=== PATIENT | male | born 1955 | race Hispanic/Latino ===

== ENCOUNTER 2018-06-15 11:42 | Emergency (ER) | payer OTHER ==
[2018-06-15] MEDS ORDERED: ASPIRIN PO ONE (11:58)
[2018-06-15 13:10] LABS: Basophils % (Auto) 0.4 % (0.0-1.8); Eosinophils # (Auto) 0.2 K/mm3 (0.0-0.4); Eosinophils % (Auto) 3.1 % (0.0-4.3); Hematocrit 49.2 % (35.5-45.6); Hemoglobin 16.5 gm/dl (11.8-15.2); Lymphocytes # (Auto) 1.9 K/mm3 (1.2-5.4); Lymphocytes % (Auto) 25.4 % (13.4-35.0); Mean Corpuscular HGB Conc 34 % (32-34); Mean Corpuscular Hemoglobin 31 pg (28-32); Mean Corpuscular Volume 93 fl (84-94); Monocytes # (Auto) 0.5 K/mm3 (0.0-0.8); Monocytes % (Auto) 6.6 % (0.0-7.3); Platelet Count 280 K/mm3 (140-440); Red Blood Count 5.28 M/mm3 (3.65-5.03); Red Cell Distribution Width 13.7 % (13.2-15.2)
[2018-06-15 13:45] LABS: BUN/Creatinine Ratio 20; Blood Urea Nitrogen 14 mg/dL (9-20); Calcium 9.6 mg/dL (8.4-10.2); Hemolysis Index 21
[2018-06-15 15:34] VITALS: BP 128/73
--- NOTE | 2018-06-15 15:39 | Emergency Department Report ---
ED Chest Pain HPI - General Chief Complaint: Chest Pain Stated Complaint: CHEST PAIN Time Seen by Provider: 06/15/18 14:51 Source: patient Mode of arrival: Ambulatory Limitations: No Limitations - History of Present Illness Initial Comments: 62-year-old male with past medical history of untreated hypertension and daily alcohol use presents to the hospital with complaints of chest pain and elevated blood pressure. While at rest and after eating breakfast patient began to have this chest tightness, diaphoresis, and shortness of breath. Patient also had pain in his left shoulder blade. He has residual aching pain and states that pain increases with deep inspiration. He denies nausea or vomiting. 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 He declined transport to the hospital but drove himself. Patient drinks alcohol daily but denies history of alcohol withdrawal tremors or seizures. Last drink was last p.m. He does not smoke cigarettes. His father had history of CAD. He reports he had an unremarkable stress test about 1 year ago as an outpatient and has never been cathed.Dad about 2 months ago he was told his blood pressure was high and suspects this been high longer than that but he has never been treated with blood pressure medication. Patient denies recent travel, calf tenderness, or history of PE/DVT. He has a secondary complaint of progressively worsening right inguinal swelling. This improves and disappears when lying supine and increases while standing. Severity scale (0 -10): 6 - Related Data Previous Rx's Medication Instructions Recorded Last Taken Type Aspirin [Aspirin EC] 325 mg PO DAILY #30 tablet. 06/15/18 Unknown Rx amLODIPine [Norvasc] 5 mg PO DAILY #30 tab 06/15/18 Unknown Rx Allergies Allergy/AdvReac Type Severity Reaction Status Date / Time No Known Allergies Allergy Unverified 06/15/18 11:58 Heart Score - HEART Score History: Moderately suspicious EKG: Non-specific Age: 45-65 Risk factors: 1-2 risk factors Troponin: < normal limit HEART Score: 4 ED Review of Systems ROS: Stated complaint: CHEST PAIN Other details as noted in HPI Comment: All other systems reviewed and negative ED Past Medical Hx - Past Medical History Previous Medical History?: No - Surgical History Past Surgical History?: No - Social History Smoking Status: Never Smoker Substance Use Type: Alcohol - Medications Home Medications: Home Medications Medication Instructions Recorded Confirmed Last Taken Type Aspirin [Aspirin EC] 325 mg PO DAILY #30 tablet. 06/15/18 Unknown Rx amLODIPine [Norvasc] 5 mg PO DAILY #30 tab 06/15/18 Unknown Rx ED Physical Exam - General Limitations: No Limitations - Other Other exam information: General: No limitations, patient is alert in no acute distress Head exam: Atraumatic, normocephalic Eyes exam: Normal appearance, pupils equal reactive to light, extraocular movements intact ENT: Moist mucous membrane, normal oropharynx Neck exam: Normal inspection, full range of motion, no meningismus nontender Respiratory exam: Clear to auscultation bilateral, no wheezes, rales, crackles Cardiovascular: Normal rate and rhythm, normal heart sounds. Chest wall nontender. Mild tenderness along the left shoulder blade Abdomen: Soft, nondistended, and nontender, with normal bowel sounds, no rebound, or guarding. Reducible right inguinal hernia Extremity: Full range of motion normal inspection no deformity, no calf tenderness or edema Back: Normal Inspection, full range of motion, no tenderness Neurologic: Alert, oriented x3, cranial nerves intact, no motor or sensory deficit Psychiatric: normal affect, normal mood Skin: Warm, dry, intact ED Course Vital Signs 06/15/18 06/15/18 11:49 15:34 Temperature 98.7 F Pulse Rate 66 52 L Respiratory 16 19 Rate Blood Pressure 182/99 Blood Pressure 128/73 [Left] O2 Sat by Pulse 98 98 Oximetry - Reevaluation(s) Reevaluation #1: 06/15/18 15:50 pt's bp improved spontaneously Patient no longer has chest tightness but has pain with inspiration MARVIN score - Marvin Score Age > 65: (0) No Aspirin use within the Past 7 Days: (0) No 3 or more CAD Risk Factors: (1) Yes 2 or more Angina events in past 24 hrs: (1) Yes Known CAD with more than 50% Stenosis: (0) No Elevated Cardiac Markers: (0) No ST Deviation Greater than 0.5mm: (0) No MARVIN Score: 2 ED Medical Decision Making - Lab Data Result diagrams: 06/15/18 12:32 06/15/18 12:32 Lab Results 06/15/18 06/15/18 06/15/18 Range/Units 12:32 12:32 13:54 WBC 7.5 (4.5-11.0) K/mm3 RBC 5.28 H (3.65-5.03) M/mm3 Hgb 16.5 H (11.8-15.2) gm/dl Hct 49.2 H (35.5-45.6) % MCV 93 (84-94) fl MCH 31 (28-32) pg MCHC 34 (32-34) % RDW 13.7 (13.2-15.2) % Plt Count 280 (140-440) K/mm3 Lymph % (Auto) 25.4 (13.4-35.0) % Ray % (Auto) 6.6 (0.0-7.3) % Eos % (Auto) 3.1 (0.0-4.3) % Baso % (Auto) 0.4 (0.0-1.8) % Lymph # 1.9 (1.2-5.4) K/mm3 Ray # 0.5 (0.0-0.8) K/mm3 Eos # 0.2 (0.0-0.4) K/mm3 Baso # 0.0 (0.0-0.1) K/mm3 Seg Neutrophils % 64.5 (40.0-70.0) % Seg Neutrophils # 4.8 (1.8-7.7) K/mm3 D-Dimer (0-234) ng/mlDDU Sodium 142 (137-145) mmol/L Potassium 4.5 (3.6-5.0) mmol/L Chloride 101.8 (98-107) mmol/L Carbon Dioxide 24 (22-30) mmol/L Anion Gap 21 mmol/L BUN 14 (9-20) mg/dL Creatinine 0.7 L (0.8-1.5) mg/dL Estimated GFR > 60 ml/min BUN/Creatinine Ratio 20 % Glucose 100 (75-100) mg/dL Calcium 9.6 (8.4-10.2) mg/dL Troponin T < 0.010 < 0.010 (0.00-0.029) ng/mL 06/15/18 Range/Units 15:09 WBC (4.5-11.0) K/mm3 RBC (3.65-5.03) M/mm3 Hgb (11.8-15.2) gm/dl Hct (35.5-45.6) % MCV (84-94) fl MCH (28-32) pg MCHC (32-34) % RDW (13.2-15.2) % Plt Count (140-440) K/mm3 Lymph % (Auto) (13.4-35.0) % Ray % (Auto) (0.0-7.3) % Eos % (Auto) (0.0-4.3) % Baso % (Auto) (0.0-1.8) % Lymph # (1.2-5.4) K/mm3 Ray # (0.0-0.8) K/mm3 Eos # (0.0-0.4) K/mm3 Baso # (0.0-0.1) K/mm3 Seg Neutrophils % (40.0-70.0) % Seg Neutrophils # (1.8-7.7) K/mm3 D-Dimer 145.09 (0-234) ng/mlDDU Sodium (137-145) mmol/L Potassium (3.6-5.0) mmol/L Chloride (98-107) mmol/L Carbon Dioxide (22-30) mmol/L Anion Gap mmol/L BUN (9-20) mg/dL Creatinine (0.8-1.5) mg/dL Estimated GFR ml/min BUN/Creatinine Ratio % Glucose (75-100) mg/dL Calcium (8.4-10.2) mg/dL Troponin T (0.00-0.029) ng/mL - EKG Data -: EKG Interpreted by Me EKG shows normal: sinus rhythm, axis (qrs -43), QRS complexes (qrsd 111), ST-T waves (anterior st elevation, anterior leads) Rate: normal (63) - EKG Data When compared to previous EKG there are: previous EKG unavailable - Radiology Data Radiology results: image reviewed (cxr: naf read by me) - Medical Decision Making + cp concern for acs admission rec neg trop x 2 ddimer neg pt will sign ama asa in ed and prescribed htn improved in ed without meds norvasc follow up - Differential Diagnosis mi, unstable angina, PE, atypical chest pain, dissection Critical Care Time: No Critical care attestation.: If time is entered above; I have spent that time in minutes in the direct care of this critically ill patient, excluding procedure time. ED Disposition Clinical Impression: Chest pain, Daily consumption of alcohol, Elevated blood pressure reading Inguinal hernia Qualifiers: Obstruction and gangrene presence: without obstruction or gangrene Laterality: unilateral Disposition: DC-07 LEFT AGAINST MED ADVICE Is pt being admited?: No Does the pt Need Aspirin: No Condition: Stable Instructions: Chest Pain (ED), How to Take a Blood Pressure (ED), Hypertension (ED), At-Risk Alcohol Use (ED), Inguinal Hernia (ED) Additional Instructions: You signing out AGAINST MEDICAL ADVICE since admission was recommended to further evaluate your heart. There is still a possibility that this chest pain can be life threatening and result in a heart attack. Please return to the ER promptly if symptoms worsen. Otherwise follow up with your train gateman or the train gateman provided. Monitor your blood pressure at home and start the blood pressure medication if your blood pressure is greater than 140/90. Follow up with a primary care doctor as well. You have also been provided follow-up with a surgeon to discuss repair of your inguinal hernia. You may use a hernia belt as discussed. Prescriptions: amLODIPine [Norvasc] 5 mg PO DAILY #30 tab Aspirin [Aspirin EC] 325 mg PO DAILY #30 tablet.dr Referrals: PRIMARY MD PATTI [Primary Care Provider] - 3-5 Days ALLA VALERIO MD [Staff Physician] - 3-5 Days (Primary care clinic) LO GLOVER MD [Staff Physician] - 3-5 Days (General surgeon) BHARAT WEBER MD [Staff Physician] - 24 Hours (Woodworking Bench Carpenter) Forms: AMA Form Time of Disposition: 15:59
--- NOTE | 2018-06-15 16:04 | XRay Report ---
FINAL REPORT EXAM: XR CHEST ROUTINE 2V HISTORY: cp TECHNIQUE: 2 view examination of the chest PRIORS: None FINDINGS: Atherosclerotic change in the thoracic aorta. Degenerative change in the thoracic spine. There is no visible pulmonary consolidation, pleural effusion, or pneumothorax. Cardiac silhouette size is normal without vascular congestion. IMPRESSION: No evidence of acute cardiopulmonary disease
== END 2018-06-15 16:21 | disposition left against medical advice (07) ==
LOC: ED 11:42
DX: R07.89 Other chest pain (principal); I10 Essential (primary) hypertension; K40.90 Unilateral inguinal hernia, without obstruction or gangrene, not specified as recurrent; Z79.82 Long term (current) use of aspirin
CPT/HCPCS: 36415; 71046; 80048; 84484; 85025; 85379; 93005; 93010